=== PATIENT | female | born 1960 | race Caucasian/White ===

== ENCOUNTER 2017-06-09 10:06 | Day surgery (SDC) | payer OTHER ==
[~2017-06-09] VITALS: Ht 172.7 cm; Wt 86.1 kg
[~2017-06-09 10:06] MED LIST: ATENOLOL25 MG PO; COLACE100 MG PO; CYMBALTA30 MG PO; FOLIC ACID1 MG PO; HYDROCODON-ACE1 EAC8 PO; LINZESS145 MCG PO; MORPHINE SULFAT15 M1 PO; PROTONIX40 MG PO; VENTOLIN HFA18 GM IH; VITAMIN D35000 UNIT PO; WELLBUTRIN100 MG PO; ZANAFLEX2 M1 PO
[2017-06-09 10:38] VITALS: BP 162/77
[2017-06-09 10:39] VITALS: BP 162/77
[2017-06-09 14:55] VITALS: BP 126/93
[2017-06-09 15:40] VITALS: BP 150/75
== END 2017-06-09 15:50 | disposition home or self-care (01) ==
LOC: SDC
PROC: 0SBC4ZZ Excision of Right Knee Joint, Percutaneous Endoscopic Approach (ICD-10-PCS; principal; 2017-06-09)
DX: S83.231A Complex tear of medial meniscus, current injury, right knee, initial encounter (principal); S83.411A Sprain of medial collateral ligament of right knee, initial encounter; X58.XXXA Exposure to other specified factors, initial encounter; M25.461 Effusion, right knee; I10 Essential (primary) hypertension; J45.909 Unspecified asthma, uncomplicated; Z86.711 Personal history of pulmonary embolism; Z86.61 Personal history of infections of the central nervous system; Z87.891 Personal history of nicotine dependence
CPT/HCPCS: J1100; J1170; J1885; J2795; J3010

== ENCOUNTER → 2017-08-31 | Outpatient (CLI) | payer OTHER | END | disposition home or self-care (01) | LOC: EKG 14:00 | DX: R94.31 Abnormal electrocardiogram [ECG] [EKG] (principal) | CPT/HCPCS: 93005; 93306 ==